=== PATIENT | male | born 1940 | race Caucasian/White ===

== ENCOUNTER 2016-09-05 12:42 | Inpatient (IN) | payer MEDICARE, BC ==
[~2016-09-05] VITALS: Ht 175.3 cm; Wt 85.2 kg
--- NOTE | ~2016-09-05 | CON ---
PATIENT'S NAME: MIGUEL VILLAFUERTE [facility] AGE: 76 Y [address] ROOM: [address] [place], [place] [address] LOCATION: GIRP ADMIT DATE: 09/05/2016 Consultation DISCHARGE DATE: 09/05/2016 FAMILY PHYSICIAN: Hawk Torrez MD ATTENDING PHYSICIAN: Billy Avitia DATE OF CONSULTATION: 09/05/2016 Team members reporting include Dr. Avitia; Reyna Hunt, hospice social worker; Isabella Bacon, RN; Kita Meadows, PT; Sandra Payne, PT; Nora Horta, OT; Tamie Yung, Speech Therapy; Jana Tate, therapeutic rec; and Sister Aide Lay, Pastoral Care. CURRENT STATUS: Patricia Adames is a 76-year-old man, admitted to our inpatient rehab unit from [facility] on September 05, 2016, for inpatient rehab. The patient's heart rate was in the 140s and went into atrial fibrillation shortly after admission. The patient then was transferred to acute care. The patient did have a stroke with right hemiplegia. He also has a history of long-term anticoagulation on Eliquis with atrial fibrillation, coronary artery disease, past history of a PTCA, hypertension, chronic systolic congestive heart failure, CPAP for chronic obstructive pulmonary disease, reflux esophagitis, benign prostatic hypertrophy, gout, history of TIAs, and dyslipidemia. The patient is having difficulty with problem solving. He can get out of bed at contact guard assistance. He is able to ambulate 150 feet with hand-held assistance, contact guard assistance to minimal assistance. He does list to his right. The patient does have a flailing right hand that they feel is involuntary. He does have overall aphasia and apraxia. The patient is able to communicate through automatic expressions or gestures. He is to have a mechanical soft diet with extra gravy. He needs one-to-one supervision. DISCHARGE PLAN: The patient is receiving 3 hours of PT, OT, and Speech, Sunday through Sunday. He is being transferred to acute care for further medical assistance. We will evaluate patient and see if the patient qualifies to come back to rehab when ready. REYNA HUNT FOR BILLY AVITIA MD TD/modl PATIENT'S NAME: MIGUEL VILLAFUERTE [facility] AGE: 76 Y [address] ROOM: [place] [address] LOCATION: [facility] ADMIT DATE: 09/05/2016 Consultation DISCHARGE DATE: 09/05/2016 FAMILY PHYSICIAN: Hawk Torrez MD ATTENDING PHYSICIAN: Billy Avitia /[id number] d: t: 09/08/166, CONSULTATION REPORT
--- NOTE | ~2016-09-05 | HP ---
PATIENT'S NAME: [facility] AGE: 76 Y [address] ROOM: [place] [address] LOCATION: [facility] ADMIT DATE: 09/05/2016 History & Physical DISCHARGE DATE: 09/05/2016 FAMILY PHYSICIAN: Hawk Torrez MD ATTENDING PHYSICIAN: Billy Barboza CORRECTED PATIENT ACCOUNT INFORMATION PER OPERATIONS 09/07/16 AO DATE OF SERVICE: This 76-year-old gentleman was admitted from [facility] for continuous medical treatment and intensive rehabilitation with: 1. Unstable gait. 2. Dependent in activities of daily self-care with right hemiplegia and slurred speech initially secondary to ischemic stroke. He is having difficulty with speech. Also, he is having difficulty with comprehension. Also agitated and with athetotic movement of the right upper extremity, and to a much lesser extent, right lower extremity. He was admitted and evaluated initially, and Speech did evaluate his swallowing, and he was put on mechanical soft with supervision one-on-one for swallowing. Dr. Hartley from [place] did contact me and did give me a good synapse about his progress and where he is now. We thought, according to his description, he is a good candidate for intensive rehabilitation. Upon admission, he was evaluated, and EKG showed atrial fibrillation with rapid ventricular response, and it was decided by [employer] to transfer him to acute site for management per healthcare customer service and [employer]. He was, at the time of admission, with the following vitals: Blood pressure 138/77, temperature 96.8, pulse 64 and irregular, respiration rate 20. He is 5 feet 9 inches tall and weighs 85.2 kg. ALLERGIES: NONE REPORTED. HE IS, AT THE PRESENT TIME, FAIRLY AGITATED AND DOES NOT REALLY FOLLOW INSTRUCTIONS VERY WELL. HE IS EASILY IMPULSIVE AND CAN HURT HIMSELF. HE CAN MOVE ALL 4; HOWEVER, RIGHT UPPER EXTREMITY, I MENTIONED, IS WITH ATHETOTIC INVOLUNTARY MOVEMENTS. HIS VOICE IS CLEAR, BUT HE DOES NOT MAKE MUCH SENSE ABOUT WHAT HE WANTS TO SAY, AND I DO NOT THINK HE IS UNDERSTANDING WELL. PATIENT'S NAME: [facility] AGE: 76 Y [address] ROOM: [place] [address] LOCATION: [facility] ADMIT DATE: 09/05/2016 History & Physical DISCHARGE DATE: 09/05/2016 FAMILY PHYSICIAN: Hawk Torrez MD ATTENDING PHYSICIAN: Billy Barboza PAST HISTORY OF SIGNIFICANCE: 1. Long-term anticoagulation on Eliquis with paroxysmal atrial fibrillation. 2. History of coronary artery disease. 3. Past history of PTCA. 4. Hypertension. 5. Chronic systolic congestive heart failure. 6. On CPAP secondary to chronic obstructive respiratory syndrome. 7. Reflux esophagitis with hiatal hernia. 8. Recently reported per his , he lost about 30 to 35 pounds. 9. Benign prostatic hypertrophy. 10. Gout. 11. History of TIA. Reportedly, he did well afterwards. 12. Dyslipidemia. 13. History of bilateral total knee replacements. 14. Status post cardiac catheterization with 3 stent placements on document. MEDICATIONS: He was on the following medications: 1. Calcium 600 mg p.o. twice daily. 2. Eliquis 5 mg p.o. twice daily. 3. Osteo Bi-Flex 2 tablets p.o. daily. 4. Vasotec 5 mg p.o. daily. 5. Potassium chloride extended release 20 mEq. 6. Sotalol 120 mg daily. 7. Flomax 0.4 mg p.o. daily. 8. Omeprazole 40 mg p.o. daily. 9. Allopurinol 300 mg daily. 10. Myrbetriq extended release 50 mg p.o. at night at bedtime. 11. Sotalol 80 mg p.o. at bedtime. He is, at the present time, able to move all 4; however, as I mentioned, he is weaker on the right side. Right upper extremity is demonstrating athetotic movement; however, tells me that those are much better. He is not well oriented. He is agitated easily and at risk of falling. After discussion with the [employer], it was decided that he should be transferred to acute site to be monitored for his rapid ventricular response to atrial fibrillation. I will watch him. Note, this is also a discharge summary because he was admitted for a few hours, maybe 3 hours, here on the rehab unit and was transferred to acute site. PATIENT'S NAME: MIGUEL [facility] AGE: 76 Y [address] ROOM: [place] [address] LOCATION: [facility] ADMIT DATE: 09/05/2016 History & Physical DISCHARGE DATE: 09/05/2016 FAMILY PHYSICIAN: Hawk Torrez MD ATTENDING PHYSICIAN: Billy Barboza MD WMS/modl /[id number] CORRECTED PATIENT ACCOUNT INFORMATION PER OPERATIONS 09/07/16 AO D: 309 T: 637 HISTORY & PHYSICAL
--- NOTE | 2016-09-05 15:04 | NUR ---
Patient admitted at 1200. Transferred from [facility]. CVA. found patient in recliner at home. Appeared to be falling out of chair. Patient was taken to [facility]. Due to the fact they were unsure how long he was there no TPA was given. Right sided weakness. 2A walker. Aphasia. Impusive. Alarms at all times. Mechanical soft diet. 1:1 feeder. Thin liquids with supervision only. Meds whole with applesauce. Skin tear to right elbow and finger on right hand. Weaping edema present. Arm wrapped with kerlix. Skin tear to right lower leg. Gauze on. Patient becomes very agitated and violent at times. Ativan IV for agitation. Last BM . Vitals to be taken every 6 hours.
[2016-09-05] MEDS ORDERED: CALCIUM CARBON600 MG PO (16:24)
[2016-09-05] MEDS ORDERED: ELIQUIS5 MG PO (16:24)
[2016-09-05] MEDS ORDERED: OSTEO BI-FLEX1 EAC1 PO (16:26)
[2016-09-05] MEDS ORDERED: VASOTEC5 MG PO (16:26)
--- NOTE | 2016-09-05 16:27 | NUR ---
Patient was very agitated upon arrival. After about an hour of being here patient got up and tried pushing the nurses out the door. Swinging at nurses at times. Patient's right arm is always fidgiting around. Patient hits arm on bed and has a couple of skin tears due to the flailing of arm. Kerlix to right arm. Tele ordered. Patient ordered to be 1:1. and family present throughout the shift. [place] bed. Alarms at all times.
[2016-09-05] MEDS ORDERED: KCL - MICRO-K10 MEQ PO (16:28)
[2016-09-05] MEDS ORDERED: SOTALOL120 MG PO (16:30)
[2016-09-05] MEDS ORDERED: FLOMAX0.4 MG PO (16:30)
[2016-09-05] MEDS ORDERED: MYRBETRIQ50 MG PO (16:33)
[2016-09-05] MEDS ORDERED: BETAPACE (GENER80 MG PO (16:34)
--- NOTE | 2016-09-08 11:54 | NUR ---
[facility] Case Management Prefunctioning and Psycho-Social Initial Assessment for 09/05/16, Case Conference Note for 09/05/16 and Discharge Note for 09/05/16 D: Initial [employer], Case Conference note and Discharge Note. I: Input from: patient, family, Dr. Booker, Dr. Barboza, Ryena Hunt [facility] R: Reason for admission: CVA with right sided weakness Admission Date to [facility]: 09/05/16 Admission Date to Hospital: 09/02/16 Prior level of functioning: patient was independent with adl's and household prior to stroke. Prior living situation: home with . Financial resources/expectations: patient has Medicare and BC/BS. Resources used: none Resources available: HHC, outpatient therapy, SNF, GROUP HOME, [facility], DME. Family support available: , kids Understands nature of health condition: no Recognizes impact of health condition on lifestyle: no Vocational/Educational: retired Behavior/Emotional needs: cues for safety. Monitor for signs and symptoms of depression and anxiety Legal concerns: none. Discharge goal: home with support of family. Assessment: Zacarias is a 76 year old man from [place], [place] admitted after a stroke from [facility] [place]. He has good family support. Patient unfortunately needed to transfer to acute care shortly after admission due to increased agitation and atrial fibrillation. Will follow and take back to [facility] when appropriate. Orientation to the program and CM services completed with Zacarias. Initial plan of care and estimated length of stay discussed, disclosure statement reviewed including patient assessment rights. P: Target date and individual goals established. Please see POC for details. For additional information please see Nursing Data Base, PT, OT, TR, ST, Initial assessments to [facility].
== END 2016-09-05 17:50 | disposition hospice, home (50) | DRG 57 ==
LOC: GIRP 12:42
PROVIDERS: ADMIT Physical Medicine & Rehabilitation
DX: I69.351 Hemiplegia and hemiparesis following cerebral infarction affecting right dominant side (principal); I50.22 Chronic systolic (congestive) heart failure; Z99.81 Dependence on supplemental oxygen; F19.20 Other psychoactive substance dependence, uncomplicated; I48.0 Paroxysmal atrial fibrillation; I69.328 Other speech and language deficits following cerebral infarction; G47.33 Obstructive sleep apnea (adult) (pediatric); I69.320 Aphasia following cerebral infarction; J44.9 Chronic obstructive pulmonary disease, unspecified; K21.0 Gastro-esophageal reflux disease with esophagitis; M10.9 Gout, unspecified; K11.7 Disturbances of salivary secretion; K44.9 Diaphragmatic hernia without obstruction or gangrene; N18.9 Chronic kidney disease, unspecified; I12.9 Hypertensive chronic kidney disease with stage 1 through stage 4 chronic kidney disease, or unspecified chronic kidney disease; R26.81 Unsteadiness on feet; Z74.1 Need for assistance with personal care; Z96.653 Presence of artificial knee joint, bilateral
CPT/HCPCS: C9113; J2060

== ENCOUNTER 2016-09-05 17:00 | Inpatient (IN) | payer MEDICARE, BC ==
[~2016-09-05] VITALS: Ht 175.3 cm; Wt 82.6 kg
--- NOTE | ~2016-09-05 | CON ---
PATIENT'S NAME: NOY MIGUEL Nemesio [facility] AGE: 76 Y [address] ROOM: [address] [address] LOCATION: GPCU ADMIT DATE: 09/05/2016 Consultation DISCHARGE DATE: FAMILY PHYSICIAN: Hawk Torrez MD ATTENDING PHYSICIAN: Luis Alberto CARR DATE OF CONSULTATION: 09/13/2016 REFERRING PHYSICIAN: Billy Allen MD INITIAL PSYCHIATRIC EVALUATION/CONSULTATION DATA: This is a 76-year-old male, currently admitted to [facility]. CONSULT REQUESTING PHYSICIAN: Fatmata De Santiago MD. DIAGNOSIS: At time of the evaluation, delirium, mixed, acute due to multiple medical conditions. RECOMMENDATIONS: 1. Even though the Seroquel is an appropriate medication in this case, probably Zyprexa maybe a bit better considering the multiple heart problems that the patient has been having, so if you do not mind, I am going to discontinue the Seroquel and put him back on Zyprexa. Nevertheless, we are going to go up on the dose, so he is going to go on Zyprexa 15 mg of the Zydis type every h.s. plus Zyprexa 5 mg of the Zydis type every 6 hours p.r.n. agitation, which is a maximum of 25 mg of Zyprexa overall in 24 hours. 2. Whenever possible, please try again to get the patient back on BiPAP or a CPAP considering the hypoxemia that the patient is experiencing because the longer that patient is hypoxemic, the more difficult going to be to get out of the delirium. HISTORY: This gentleman ended up in [facility] recently as a transfer from [place] where he had a stroke. He has multiple medical problems, and he was transferred initially to our rehab unit where he was confused there, so a psychiatric consultation was requested as soon as he actually ended up in our progressive care unit because he is ill. I reviewed the electronic records, the paper records, talked to the nurse for vital signs and collateral information. I talked to the patient on a [id number] in the company of his , and also I talked to Dr. De Santiago. The patient is a very poor historian, PATIENT'S NAME: NOY [facility] AGE: 76 Y [address] ROOM: [id number] [place], [place] [address] LOCATION: GPCU ADMIT DATE: 09/05/2016 Consultation DISCHARGE DATE: FAMILY PHYSICIAN: Hawk Torrez MD ATTENDING PHYSICIAN: BRUNOLuis Alberto will very rapidly fall asleep even though we tried to keep him away, so not very cooperative with the interview. The patient also has been confused at times and even aggressive to one of the nurses at one point with no reason. As I am seeing right now, the patient seems to be sleeping during the daytime, and he had a restless night. The patient also has had issues with not being able to keep conversation, very distractible, and with everything together seems to be a classic case of delirium, that was the diagnosis given by the order department supervisor just to begin with, and they were already trying to deal with delirium with a low dose of Zyprexa and Seroquel when they called me. The patient does not have a previous history of being delirious but again multiple medical problems. SUBSTANCE USE HISTORY: Noncontributory, not a smoker, a drinker, or a drug user. PAST PSYCHIATRIC HISTORY: Never been in a psychiatric facility. Never suicidal. MEDICAL HISTORY: Per history and physical. Very relevant for the case. The patient is known to have obstructive sleep apnea, but he has not been compliant with his CPAP. PERSONAL HISTORY: He is from [place] and right now with his here in [facility]. HISTORY OF ABUSE: Noncontributory. FAMILY HISTORY: Noncontributory. MENTAL STATUS EXAMINATION: This is a gentleman, not cooperative, sedated, sleeping. His speech is nonproductive and from what I understand after the stroke, is not being productive for medical reason of course. Mood is labile. Affect is labile. Thought content is relevant. The patient is not recently endorsing suicidal or homicidal ideation, not recently endorsing auditory or visual hallucination, not recently endorsing delusional thoughts. Thought process congruent, not coherent, but again there are issues with the production obviously because of the aphasia . Memory could not be tested. Level of alertness seems to be fluctuating, and we do not know if he is oriented. STRENGTHS: Access to service. PATIENT'S NAME: MIGUEL VILLAFUERTE [facility] AGE: 76 Y [address] ROOM: [address] [place], [place] [address] LOCATION: [facility] ADMIT DATE: 09/05/2016 Consultation DISCHARGE DATE: FAMILY PHYSICIAN: Hawk Torrez MD ATTENDING PHYSICIAN: Luis Alberto CARR BARRIERS: Multiple at present time. ARTHUR CARRILLO MD HG/modl /[id number] d: 09/13/16 2328 t: 09/15/16 0750, CONSULTATION REPORT
--- NOTE | ~2016-09-05 | DS ---
PATIENT'S NAME: MIGUEL VILLAFUERTE [facility] AGE: 76 Y [address] ROOM: [address] [place], [place] [address] LOCATION: GPCU ADMIT DATE: 09/05/2016 Discharge Summary DISCHARGE DATE: 09/20/2016 FAMILY PHYSICIAN: Hawk Torrez MD ATTENDING PHYSICIAN: Luis Alberto ABRAMS DISCHARGE DIAGNOSES: 1. 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 2. Atrial fibrillation with rapid ventricular response. 3. Acute encephalopathy, secondary to cerebrovascular accident. 4. Essential hypertension. 5. 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 6. Long-term anticoagulation with Coumadin. 7. Obstructive sleep apnea, uses CPAP. 8. Hypokalemia. 9. Dyslipidemia. 10. History of coronary artery disease, status post PTCA. 11. Monoarticular arthritis, right ankle. 12. Gout. For details of admission, please see the history and physical dictated by Coy Morin for Dr. Abrams and consultation provided by Dr. Varela. In short, the patient was transferred to our rehab facility, status post a stroke. On arrival, he was noted to be encephalopathic and having atrial fibrillation, so therefore was admitted on PCU. LABORATORY DATA: On admission, sodium 145, remained stable, it was 143 at discharge. Potassium on admission was 3.5, at discharge 4. BUN on admission was 11, discharge 22. Creatinine on admission was 1, discharge 1.1. Alkaline phosphatase on admission was 50, AST is 81, ALT 35, cholesterol 123, HDL 45, LDL 61. Cardiac enzymes were negative. Dig level was 1.25 on September 10. White blood cell count on admission was 6.3 with hemoglobin of 12.3, hematocrit 36.3, MCV 100, and platelet count 205. Hemoglobin remained stable at discharge, it was 11. Procalcitonin on admission was less than 0.05. Urinalysis on admission did not show any evidence of infection. Culture data: Material from the PEG site did grow Staph aureus. Cardiovascular data: Echocardiogram showed the patient had an EF of 40%-45%. He had grade 1 diastolic. HOSPITAL COURSE: The patient was admitted to the floor on PCU. At that time, it was felt because of his encephalopathy that he needed to be a one-to-one. He was initiated on a statin drug and a fasting lipid was obtained. PATIENT'S NAME: MIGUEL VILLAFUERTE [facility] AGE: 76 Y [address] ROOM: [address] [place], [place] [address] LOCATION: GPCU ADMIT DATE: 09/05/2016 Discharge Summary DISCHARGE DATE: 09/20/2016 FAMILY PHYSICIAN: Hawk Torrez MD ATTENDING PHYSICIAN: Luis Alberto ABRAMS did see him from a neurology standpoint. Because of the atrial fibrillation, Dr. Traylor did see him. He was initially given Haldol for his encephalopathy. This was changed to Seroquel. He did require IV Cardizem for rate control. He was initially placed on sotalol for the atrial fibrillation. Adjustments were made in the Seroquel in an attempt to try and help bring the confusion under control. An MRI was ordered. But, however, it could not be done because of his agitated state and inability to lie still. There was some concern about a low-grade fever. He was empirically started on Rocephin and cultures obtained. He did receive IV Lopressor, IV Trandate, and IV hydralazine for blood pressure control. The patient did flip back into atrial fibrillation. He was put on the Cardizem drip. Again, at that time, the patient was taken off sotalol and loaded with amiodarone drip. There were multiple adjustments in his medications to try and keep this under control. Neurology did not feel that he was safe to anticoagulate until September 19. He did develop some redness in his ankle, and there was concern that this was gout. He was initially given some colchicine. An NG was placed because he was not able to swallow. Because of the difficulty controlling his rate, he was loaded with IV digoxin. He did continue to have significant issues with episodes of atrial fibrillation and encephalopathy. Decision was made to present with a PEG. Dr. Dasilva did see him and a PEG tube was placed by Dr. Dasilva on September 12 without any issue. Because of the ongoing encephalopathy, psychiatry did see him again. They changed him putting back on Zyprexa at 15. He was able to start his tube feeds. We did use his G-tube for medications. Adjustments were made in the metoprolol dose to try and keep his heart rate controlled. He did continue to go in and out of atrial fibrillation. On the , it was discussed with Neurology. At that time, they did give the okay to start anticoagulation. He was started on Coumadin. His right ankle did become erythematous again. He responded nicely to Solu-Medrol and was given 2 days of IV Solu-Medrol with resolution of his symptoms. He did start to have some improvement in his delirium, and he is able to work with therapy a little bit more. His speech was improved. On the , it was noted he had some drainage around his PEG tube. This was cultured. It did grow Staph. He was empirically started on doxycycline. On the morning of discharge, he did have another episode where he went into atrial fibrillation with a fast rate for a brief period. The amiodarone dose was adjusted. Cardiology did see him and still feel that he was safe for transfer to [facility]. The patient did have a Gordillo catheter in place. It was removed. He did require straight cath x1, but was voiding the morning of discharge without any difficulty. The benefits of proceeding to [facility] were discussed with the patient's at length. She and her children did agree with this transfer. DISCHARGE INSTRUCTIONS: To follow up Dr. Traylor on arrival for his rate and rhythm. He is to have Jevity at 1.5 at 50 mL/h, 150 mL flushes every 4 hours. CPAP at night. He is to have daily prothrombin times and INRs. He will have PATIENT'S NAME: MIGUEL VILLAFUERTE [facility] AGE: 76 Y [address] ROOM: [address] [address] LOCATION: GPCU ADMIT DATE: 09/05/2016 Discharge Summary DISCHARGE DATE: 09/20/2016 FAMILY PHYSICIAN: Hawk Torrez MD ATTENDING PHYSICIAN: Luis Alberto ABRAMS drain dressing change around his PEG. MEDICATIONS: 1. Prevacid slurry 30 mg daily. 2. Amiodarone 400 mg twice daily. 3. Lipitor 80 mg daily. 4. Bacitracin around the PEG site twice daily. 5. Doxycycline 100 mg twice daily via tube through September 26. 6. Enalapril 5 mg daily. 7. Lopressor 25 mg twice daily. 8. Zyprexa 15 mg at bedtime. 9. Potassium 40 mEq daily. 10. Flomax 0.4 mg daily. 11. Dulcolax 10 mg per rectum as needed for constipation. 12. Milk of magnesia 30 mL daily as needed for constipation. 13. Zyprexa 5 mg every 6 hours as needed for agitation, max of 25 mg per day. 14. Coumadin 2.5 mg Sunday, Sunday, and Sunday; and 5 mg Sunday, Sunday, , and Sunday. 15. DuoNeb inhaled every 4 hours as needed for cough or shortness of breath. CHERELLE JOHN MD LAW/modl /[id number] d: 09/20/162 t: 09/21/16 1641, DISCHARGE SUMMARY
--- NOTE | ~2016-09-05 | CON ---
PATIENT'S NAME: NOY [facility] AGE: 76 Y [address] ROOM: [place] [address] LOCATION: GPCU ADMIT DATE: 09/05/2016 Consultation DISCHARGE DATE: FAMILY PHYSICIAN: Hawk Torrez MD ATTENDING PHYSICIAN: Luis Alberto CARR REFERRING PHYSICIAN: Billy Allen MD REASON FOR CONSULTATION: Status post stroke with inability to swallow. HISTORY OF PRESENT ILLNESS: The patient is a 76-year-old male who had a left middle cerebral artery stroke. He was initially treated in [place]. He was sent here more for rehab purposes. He has had atrial fibrillation. He has been unable to swallow. He has had difficulty with communication with some confusion. He is being followed by Speech Therapy and is having difficulty even swallowing his own secretions. He has been unable to eat. He has not tolerated Dobhoff due to agitation. Because of this, I have been asked to place a PEG. The patient has had no previous abdominal surgeries. PAST MEDICAL HISTORY: Coronary artery disease, hypertension, hyperlipidemia, history of myocardial infarction, TIAs, sleep apnea, gout, BPH, and history of cardiomyopathy. PAST SURGICAL HISTORY: Bilateral cataract, knee scope, EGD, and previous heart stents. ALLERGIES: NO KNOWN MEDICAL ALLERGIES. HOME MEDICATIONS: 1. Sotalol. 2. Osteo Bi-Flex. 3. Potassium. 4. Eliquis. 5. Vasotec. 6. Calcium. 7. Flomax. 8. Myrbetriq. 9. Omeprazole. FAMILY HISTORY: Father with coronary artery disease and prostate cancer. Mother had coronary artery disease as well as breast cancer. SOCIAL HISTORY: PATIENT'S NAME: NOY [facility] AGE: 76 Y [address] ROOM: [place] [id number] LOCATION: GPCU ADMIT DATE: 09/05/2016 Consultation DISCHARGE DATE: FAMILY PHYSICIAN: Hawk Torrez MD ATTENDING PHYSICIAN: Luis Alberto CARR He does not smoke. Drinks 1-2 drinks each night. REVIEW OF SYSTEMS: Unobtainable. PHYSICAL EXAMINATION: GENERAL: He is a somewhat anxious 76-year-old male who has difficulties with communication. HEENT: Head is normocephalic. He has oral secretions down the right side of his mouth. HEART: Irregularly irregular. LUNGS: Clear to auscultation bilaterally. ABDOMEN: Soft. It is nontender to palpation. EXTREMITIES: Warm. No edema. ASSESSMENT: Status post cerebrovascular accident with inability to swallow, a need for long-term enteral nutrition. PLAN: Discussed the findings with the patient's . He has not been able to have oral nutrition as he is having difficulty even controlling his own secretions. Because of this, we have discussed PEG tube placement with the patient's . The risks, benefits, and alternatives, which include, but are not limited to, bleeding, infection, tube malposition, erosions, injury to other viscera, as well as inability to place the tube. She understands the risks and would like to proceed. We will plan on scheduling this in the near future. MD SAMMY HAMMER/macarena /[id number] d: 09/11/16 2134 t: 09/19/16 1811, CONSULTATION REPORT
--- NOTE | ~2016-09-05 | HP ---
PATIENT'S NAME: MIGUEL VILLAFUERTE [facility] AGE: 76 Y [address] ROOM: G6327 [place], [place] [address] LOCATION: GPCU ADMIT DATE: 09/05/2016 History & Physical DISCHARGE DATE: FAMILY PHYSICIAN: Hawk Torrez MD ATTENDING PHYSICIAN: Luis Alberto CARR Corrected patient account information per operations 09/07/16 AO DATE OF SERVICE: 09/05/2016 CHIEF COMPLAINT: Atrial fibrillation with rapid ventricular response. HISTORY OF PRESENT ILLNESS: This is a 76-year-old male, who was hospitalized in [facility] and transferred to [facility]patient [facility]hab Unit today when the hospitalists were consulted for medical management. The patient was found to be in atrial fibrillation with rapid ventricular rate in the 140 beats per minute. Blood pressure was stable. Cardiology consultation was obtained and felt that the patient should be transitioned to PCU for correction. Collateral information was gathered from the spouse at bedside, nurse, and chart review as the patient is an unreliable historian secondary to his recent stroke. A 76-year-old male with a history of paroxysmal atrial fibrillation, on long- term anticoagulation with Eliquis, history of coronary artery disease with previous stents, hypertension, chronic systolic congestive heart failure, obstructive sleep apnea, noncompliant with CPAP, reflux, hiatal hernia, and recent 35-pound weight loss since last fall 2015. There is some question of chronic kidney disease, although his most recent creatinine is normal and BPH. On Sunday, he was resting in his recliner when the found him slumped over, unresponsive, and drooling from the right side of his mouth. He was taken by EMS team to [facility] where a CT scan was performed, and it was positive for ischemic stroke involving the left frontal, temporal, and parietal lobes. He was not a tPA candidate secondary to use of Eliquis according to the neurologist consultation by phone. He was given aspirin and IV fluids by documentation for permissive hypertension. He has not been cooperative with cares. He has significant expressive aphasia, right-sided involuntary movements, and right-sided facial droop. He has been getting IV morphine and IV Ativan for behavioral controls and was reported to have right upper extremity restraint for thrashing of his right upper extremity. He has not been taking anything orally, most notably his cardiac medications. Here, he is found to be in atrial fib with a rapid ventricular rate, and an EKG shows 140 beats per minute. He is normotensive and relatively asymptomatic but hard to determine given his aphasia. Speech therapist was just in and cleared him for medications with applesauce. Cardiology and neurologic PATIENT'S NAME: MIGUEL VILLAFUERTE [facility] AGE: 76 Y [address] ROOM: [place] [address] [facility] AD[facility] DATE: 09/05/2016 History & Physical DISCHARGE DATE: FAMILY PHYSICIAN: Hawk Torrez MD ATTENDING PHYSICIAN: Luis Alberto CARR consultation has been ordered by the Physiatry Team. A CT of the head without contrast has been also ordered, and IV Ativan has been ordered for behaviors. REVIEW OF SYSTEMS: Difficult given the patient's unreliable history and confusion. PAST MEDICAL HISTORY: 1. Paroxysmal atrial fibrillation. 2. Long-term anticoagulation with Eliquis. 3. History of coronary artery disease with a past history of PTCA. 4. Hypertension. 5. Chronic systolic congestive heart failure. 6. [place], noncompliant with CPAP. 7. Acid reflux. 8. Hiatal hernia. 9. Recent 35-pound weight loss. 10. Questionable CKD 3. 11. BPH. 12. History of gout. 13. History of TIA. 14. Hyperlipidemia. PAST SURGICAL HISTORY: 1. History of bilateral knee replacements. 2. History of heart catheterizations with 3 stents placement documented. 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 He is . He does drink 2 rum and cokes for 5 to 6 days a week. He denies any tobacco use or illicit drug use. ALLERGIES: NO KNOWN MEDICAL ALLERGIES. HOME MEDICATIONS: 1. Calcium 600 mg p.o. twice daily. 2. Eliquis 5 mg p.o. twice daily. 3. Osteo Bi-Flex 2 tablets p.o. daily. 4. Vasotec 5 mg p.o. daily. 5. Potassium chloride extended release 20 mEq TA. 6. Sotalol 120 mg p.o. daily. 7. Flomax 0.4 mg p.o. daily. 8. Omeprazole 40 mg p.o. daily. 9. Allopurinol 300 mg p.o. daily. 10. Myrbetriq extended release 50 mg p.o. every night at bedtime. PATIENT'S NAME: MIGUEL VILLAFUERTE [facility] AGE: 76 Y [address] ROOM: [address] [place], [place] [address] [facility] AD[facility] DATE: 09/05/2016 History & Physical DISCHARGE DATE: FAMILY PHYSICIAN: Hawk Torrez MD ATTENDING PHYSICIAN: Luis Alberto CARR 11. Sotalol 80 mg p.o. every night at bedtime. PHYSICAL EXAMINATION: GENERAL: This is a 76-year-old male, who appears his stated age, who is restless in the bed, having involuntary movements of the right upper extremity and who is not cooperative. He is confused. HEENT: Head is normocephalic, atraumatic. Eyes: Extraocular movements are intact. His pupils are equal, round, and reactive to light and accommodation. Ears: Deferred. Nose: Deferred. Posterior pharynx is visualized. There is no drainage or exudates. Right facial droop is present. NECK: Supple without any lymphadenopathy or thyromegaly. There is no JVD. HEART: Irregular rhythm with fast rate. No murmur auscultated. He has mild bilateral peripheral edema 1+. LUNGS: His lungs are clear throughout all reese without any adventitious sounds. Equal symmetric expansion without labored breathing pattern. ABDOMEN: His abdomen is soft, nontender, and nondistended. Bowel sounds are present. No organomegaly appreciated. EXTREMITIES: Reveal his right hand and right wrist are swollen. Clipman strength is equal 5/5 in upper extremities. No clubbing or cyanosis bilaterally. His lower extremities are also equal. Strength difficult to determine, but it appears his right is a little weaker than his left. SKIN: Posterior right ankle, he has 3 to 4 very small skin tears with weeping serous drainage. NEUROLOGIC: Significant expressive aphasia, questionable right-sided visual deficit with right-sided weakness. IMAGING DATA: Most recent radiologic imaging; on 09/03/2016, radiologic report shows a developing decreased density and apparent edema in the posterior left frontal and temporal lobe and left parietal lobes suggesting subacute infarct. There was no intracranial hemorrhage. LABORATORY DATA: Most recent labs on September 02, 2016, an INR was 1.13. On September 04, 2016, a white blood cell count 6.36, hemoglobin of 12.3, hematocrit of 37.6 and a platelet count of unknown. Chemistry panel showed a glucose 76, BUN 13, creatinine 0.8, GFR greater than 60, calcium 8.1, sodium 142, potassium 3.7, chloride 108, CO2 of 23.7, anion gap 14.0. Echocardiogram and venous Dopplers are reported as pending as of 09/04/2016. An EKG this afternoon shows atrial fibrillation with rapid ventricular response. IMPRESSION: PATIENT'S NAME: MIGUEL VILLAFUERTE [facility] AGE: 76 Y [address] ROOM: [place] [address] LOCATION: GPCU ADMIT DATE: 09/05/2016 History & Physical DISCHARGE DATE: FAMILY PHYSICIAN: Hawk Torrez MD ATTENDING PHYSICIAN: Luis Alberto CARR 1. Atrial fibrillation with rapid ventricular response. Discussed the patient with his primary care pediatric orthodontist. He wishes to transition the patient to progressive care and rate control him with intravenous calcium channel blockers or beta blockers. A CT scan of the patient's head has been ordered for further review. We will have to discuss with Neurology when it would be okay to anticoagulate the patient in light of the patient's atrial fibrillation. 2. Acute ischemic CVA with late effects as expressive aphasia, encephalopathy, right upper extremity involuntary movements, and questionable right-sided neglect. Follow up CT scan. Follow up neuro consultation. Resume aspirin and add statin therapy. Check lipid panel. Follow up echocardiogram and consider getting carotids or further MRI of the brain and MRA of the neck and brain imaging. 3. Coronary artery disease with a history of PTCA. Troponin tests in Ord were negative. We will appropriately treat with aspirin, beta mau, PEDRO inhibitor, and statin therapy once above is resolved. 4. Essential hypertension. Current systolic blood pressure is 130s to 140s. We will continue to closely observe and bring down to goal when okay with Neurology. 5. Chronic systolic congestive heart failure. Appears to be currently euvolemic. We will monitor I and O and return back to appropriate beta blockade and PEDRO inhibitor once blood pressure allows. 6. Benign prostatic hyperplasia. Continue with home Flomax and Myrbetriq. 7. Gastroesophageal reflux disease with hiatal hernia. Continue with current proton pump inhibitor. 8. Recent 35-pound weight loss. Unknown reason. Continue close observation. 9. Deep venous thrombosis prophylaxis. Continue current Lovenox dosing. 10. We will go ahead and admit the patient into progressive care with Cardiology and neurology consultations. Total time review of the history and physical and examination of the patient was 60 minutes. ALEX TORRES APRN, APRN FOR MD ANGIE SALAS/macarena /[id number] Corrected patient account information per operations 09/07/16 AO D: 66 HISTORY & PHYSICAL
--- NOTE | ~2016-09-05 | ECHO ---
Transthoracic Echocardiography Report (TTE) Demographics Patient Name MIGUEL VILLAFUERTE Date of Study 09/06/2016 Patient Number [id number] Visit Number [id number] Date of 1940 Room Number G6327 Accession Number [id number] Gender Male Age 76 year(s) Referring Jose Albertohuey Sahu Central Supply Aide Humphrey Sin Physician Physician Interpreting Marie Turner Portrait Consultant Physician A Supervising Ordering Physician Smith Araya MD/NETOP Nurse Stress Coring Machine Operator Conclusions Summary Technically difficult and technically limited study due to patient combativeness. The estimated left ventricular ejection fraction is 40-45%. Apical akinesis Diastolic assessment reveals Grade I diastolic dysfunction. Right ventricular function appears mildly reduced. Epicardial fat pad noted. Procedure Type of Study TTE procedure:2D Echocardiogram, M-Mode, Doppler , Color Doppler. Procedure Date Date: 09/06/2016 Start: 02:48 PM Study Location: Inpatient Portable Technical Quality: Limited visualization due to combative patient. Indications:CVA. Appropriate Use Criteria: 9 Patient Status: Routine HR: 67 bpm BP: 164/75 mmHg Allergies - No known allergies. M-Mode/2D Measurements LV Diastolic Dimension: 4.95 cm LV Systolic Dimension: 3.76 cm LV Septum Diastolic: 1.03 cm LV PW Diastolic: 0.8 cm AO Root Dimension: 2.8 cm LA Dimension: 3.4 cm RV Diastolic Dimension: 3.35 cm LA volume: 48 ml LVOT: 1.9 cm RV Base: 2.66 cm RV Mid: 2 cm RV Length: 6.3 cm Doppler Measurements MV Peak E-Wave: 0.98 m/s MV Peak A-Wave: 1.18 m/s MV E/A Ratio: 0.83 TR Velocity:1.07 m/s MV P1/2t: 54 msec TR Gradient:4.58 mmHg Estimated RAP:3 mmHg MV Deceleration Time: 215 msec E' Septal Velocity: 0.06 m/s PV Peak Velocity: 1.05 m/s E' Lateral Velocity: 0.06 m/s PV Peak Gradient: 4.41 mmHg Estimated PASP: 7.58 mmHg A' Lateral Velocity: 0.11 m/s Findings Left Ventricle The left ventricle is normal in size . Diastolic assessment reveals Grade I diastolic dysfunction. Apical akinesis. Right Ventricle Right ventricular function appears mildly reduced. Unable to obtain TAPSE or TDI-S' measurements due to patient combativeness. Left Atrium Normal left atrial size. Right Atrium Normal right atrial size. IVC measures 1.38 cm with inspiratory collapse. Mitral Valve Trivial mitral regurgitation by color Doppler. Aortic Valve The aortic valve was not well imaged. The aortic valve is mildly sclerotic. Tricuspid Valve Trivial tricuspid regurgitation by color Doppler. Pulmonic Valve Normal pulmonic valve structure and function. Pericardial Effusion No evidence of pericardial effusion. Epicardial fat pad noted. Miscellaneous Visualized portions of the aortic root and ascending aorta appear normal in size. Pleural Effusion No evidence of pleural effusion. Contractility Score LV regional wall motion:(0-Non visualized 1-Normal 2-Hypokinesis 3-Akinesis 4-Dyskinesis 5-Aneurysm) Signature dtt: Jomar Salazar dtd: 09/06/16 1448 Physician Self Edit
--- NOTE | ~2016-09-05 | OR ---
PATIENT'S NAME: NOY FRIENDSHIP Nemesio [facility] AGE: 76 Y [address] ROOM: [place] [address] LOCATION: GPCU ADMIT DATE: 09/05/2016 OR/Procedure Report DISCHARGE DATE: FAMILY PHYSICIAN: Hawk Torrez MD ATTENDING PHYSICIAN: Luis Alberto CARR SURGEON: Reinaldo Dasilva MD SKEIN MERCERIZING MACHINE OPERATOR: DATE OF PROCEDURE: 09/12/2016 PREOPERATIVE DIAGNOSIS: Dysphagia status post cerebrovascular accident. POSTOPERATIVE DIAGNOSIS: Dysphagia status post cerebrovascular accident. PROCEDURE: Percutaneous endoscopic gastrostomy tube placement. FINDINGS: The catheter appeared to be in good position at 3 cm to the skin. ESTIMATED BLOOD LOSS: Less than 20 mL. COMPLICATIONS: None. INDICATIONS: The patient is a 76-year-old male who had a cerebrovascular accident. He was unable to swallow and obtain adequate oral intake. We discussed PEG placement with the patient's spouse, the risks, benefits, and alternatives, and she elected to proceed. DESCRIPTION OF PROCEDURE: The patient was taken into the endoscopy suite. He was supine. Bite block was positioned. Flexible endoscope was inserted in the esophageal lumen and was advanced through the esophagus down to the GE junction. No significant esophagitis was present. There was bile within the gastric lumen. This was suctioned. We advanced scope into the first part of the duodenum. No duodenal abnormalities were seen. We withdrew back into the antrum and maximally insufflated the stomach. A light reflex was able to be seen on the anterior abdominal wall. This was selected for our insertion site. Local anesthetic was then infiltrated. A stab incision was created. The introducer sheath and needle were then inserted into the gastric lumen under endoscopic visualization. The wire was then placed. The snare was placed through the flexible endoscope. The wire was snared and brought out through the mouth. The PEG tube was then fed over the wire. The wire, PEG tube, and flexible endoscope were all pulled back into the gastric lumen. The snare was released. The wire was removed. The rubber bumper was placed on the PEG tube, it appeared to be in good position at 3 cm to the skin and appeared hemostatic. The scope was then withdrawn. The PEG tube was secured in place to gravity. The patient tolerated the procedure well. PATIENT'S NAME: NOY [facility] AGE: 76 Y [address] ROOM: [address] [address] [facility] ADMIT DATE: 09/05/2016 OR/Procedure Report DISCHARGE DATE: FAMILY PHYSICIAN: Hawk Torrez MD ATTENDING PHYSICIAN: Luis Alberto CARR REINALDO J MD SAMMY DASILVA/modl /[id number] d: 09/12/16905 t: 09/19/16 1813, OPERATIVE SUMMARY
--- NOTE | ~2016-09-05 | CON ---
PATIENT'S NAME: MIGUEL VILLAFUERTE [facility] AGE: 76 Y [address] ROOM: [address] [place], [place] [address] LOCATION: GPCU ADMIT DATE: 09/05/2016 Consultation DISCHARGE DATE: FAMILY PHYSICIAN: Hawk Torrez MD ATTENDING PHYSICIAN: Luis Alberto CARR REFERRING PHYSICIAN: Jose Alberto Sahu MD REASON FOR CONSULT: Atrial fibrillation with rapid ventricular response. HISTORY OF PRESENT ILLNESS: This is a 76-year-old gentleman, well known to Dr. Traylor with a history of paroxysmal atrial fibrillation, coronary artery disease with myocardial infarction, obstructive sleep apnea. He was last seen by Dr. Traylor on 08/30/2016 with recent complaints of dizziness. He had worn ZIO monitor, which had shown normal sinus rhythm with numerous runs of paroxysmal atrial fibrillation. At that time, his sotalol was increased to 120 mg in the morning and 80 mg in the h.s. He was also continued on Eliquis therapy. Unfortunately, the following Sunday, he has suffered a CVA with right-sided weakness and aphasia. He was transferred to [place] on day of admission to start inpatient rehab, and at that time, he was found to be in atrial fibrillation with rapid ventricular response. He then became very combative and confused and therefore was transferred to the acute care. While here, a second CT was ordered, but he was so combative, they were unable to get it. He had been given Haldol, Zyprexa, and Ativan. He remains confused, combative, and restless. He did convert though into a regular sinus rhythm around midnight. Currently, he is unable to give any information. Most of his information has been gleaned from old records. PAST MEDICAL HISTORY: 1. Coronary artery disease with myocardial infarction, post PCI, stenting of the LAD and RCA in 2000, 2009, and 2011. 2. Essential hypertension. 3. Hyperlipidemia. 4. History of anterior wall myocardial infarction. 5. TIA. 6. Paroxysmal atrial fibrillation, post cardioversion, 11/04/2012. 7. Obstructive sleep apnea, inconsistent use of CPAP. 8. Long-term anticoagulation, on omeprazole. 9. Gastroesophageal reflux disease. 10. Gout. 11. BPH. 12. History of cardiomyopathy with EF of 35% with a normalized EF of 58%. 13. History of thrombocytopenia. 14. History of depression. 15. History of chronic kidney disease. PATIENT'S NAME: MIGUEL VILLAFUERTE [facility] AGE: 76 Y [address] ROOM: [address] [place], [place] [address] [facility]: 09/05/2016 Consultation DISCHARGE DATE: FAMILY PHYSICIAN: Hawk Torrez MD ATTENDING PHYSICIAN: Luis Alberto CARR PAST SURGICAL HISTORY: He has had bilateral cataract surgery; a knee scope; an EGD done on 03/01/2016, was normal; C with PTCA and stent, mid RCA, 02/26/2012; left heart catheterization, 07/16/2011, PTCA and stenting of the [place] RCA; 08/13/2009, PTCA and stent, RCA; 02/09/2001, PTCA and stent, LAD. ALLERGIES: THERE ARE NO KNOWN MEDICAL ALLERGIES, BUT HE HAS MYALGIAS ON LIPITOR. CURRENT HOME MEDICATIONS: 1. Sotalol 120 mg in the morning and 80 mg in the h.s. as of 08/30/2016. 2. Osteo Bi-Flex 2 capsules daily. 3. Potassium 20 mEq daily. 4. Eliquis 5 mg b.i.d. 5. Vasotec 5 mg daily. 6. Calcium 600 mg b.i.d. 7. Flomax 0.4 mg every h.s. 8. Myrbetriq 50 mg every day. 9. Omeprazole 40 mg every a.m. FAMILY HISTORY: Father has a three-vessel CABG. He also had prostate cancer. Mother had open- heart surgery in her 80s. She also had breast cancer. He has a sister with fibromyalgia. SOCIAL HISTORY: He is a lifelong nonsmoker. He does have a couple of drinks most nights of the week. REVIEW OF SYSTEMS: Unobtainable. PHYSICAL EXAMINATION: GENERAL: This is an elderly male, who has a history of weight loss of about 35 pounds since last fall. He is restless, rolling about in the bed, does not recognize or look when his name is called. HEENT: Currently, he has symmetrical facial expression. His pupils did react briskly. NECK: Soft and supple. There is no lymphadenopathy. No thyromegaly. JVD is flat. Carotids, no carotid bruits are noted. LUNGS: Lung sounds are clear. CV: Regular with a normal S1, S2 with a grade 2/6 systolic ejection murmur heard best at the left lower sternal border. ABDOMEN: Soft. Bowel sounds are present. PATIENT'S NAME: MIGUEL VILLAFUERTE [facility] AGE: 76 Y [address] ROOM: [place] [address] [facility]: 09/05/2016 Consultation DISCHARGE DATE: FAMILY PHYSICIAN: Hakw Torrez MD ATTENDING PHYSICIAN: Luis Alberto CARR EXTREMITIES: Show no peripheral edema today. He does have some abrasion to his left knee. He does not follow commands. LABORATORY DATA: Hemoglobin was 12.3, platelets were 205. BUN 9, creatinine 0.8, sodium was 144, potassium was 3.3. ASSESSMENT: 1. Paroxysmal atrial fibrillation with rapid ventricular response. We will resume the sotalol as described above, that was just increased on the . He is to continue with anticoagulation therapy as his CHADS-VASc score=7. Will plan to resume the Sotalol. 2. Hypokalemia, Will replace the potassium. The assessment and plan, history of present illness and physicial exam are per Dr. Golden Traylor. Further recommendations will be forth comming as information becomes available. REUBEN CONWAY APRN FOR MD BEREKET RUBIO/joel /[id number] d: 09/06/16 2254 t: 09/29/16 0922, CONSULTATION REPORT
--- NOTE | ~2016-09-05 | CON ---
PATIENT'S NAME: MIGUEL GOMEZ [facility] AGE: 76 Y [address] ROOM: [id number] [place], [place] [address] LOCATION: GPCU ADMIT DATE: 09/05/2016 Consultation DISCHARGE DATE: FAMILY PHYSICIAN: PHYSICIAN, UNKNOWN ATTENDING PHYSICIAN: Luis Alberto CARR DATE OF CONSULTATION: 09/05/2016 The patient was seen in neurologic consultation on 05 September 2016 at 9:30 p.m. HISTORY OF PRESENT ILLNESS: Mr. Gomez is a 76-year-old male patient who recently had a stroke involving the left MCA territory we believe. We have no evidence to back this up, as the patient presented to an alternate hospital and was monitored at this hospital for new onset of right-sided weakness and global aphasia. The patient apparently was in the hospital for a few days before he was transferred to our hospital for rehab purposes. According to some limited information at the hospital facility, he was becoming much more confused than rambunctious. By the time he arrived here, he was having difficulty with communication and was certainly beginning to be confused. He also was experiencing a rapid atrial fibrillation which required Cardizem for treatment. He does have known paroxysmal atrial fibrillation and was actually on a new oral anticoagulant that was not mentioned in the chart that I reviewed. Because he presented to the hospital with a new onset of stroke while supposedly religiously taking his medications, he could not be a candidate for tPA due to the oral anticoagulant. The patient did receive IV fluids to maintain his blood pressure. I am seeing the patient in the room this evening and he was moving his extremities appropriately. He did have a noticeable right facial droop and he did have evidence for a bit of neglect of his right side. He was not answering questions appropriately, but did call out his 's name and would follow very basic commands. He was extremely agitated a few hours ago when it was attempted to do both a CAT scan and an MRI. He initially received Ativan and this did not calm him down for the study. He then received Haldol which really did not help with his confusion. I discussed with the nursing staff tonight that we should likely avoid Haldol in this elderly person because we do not know if he has any history of dementia, it has only seemed to make him more agitated. At this point in time, we have no scans to give us some idea of his stroke, but clinically he appears to have at least a left brain syndrome, possibly subcortical base stroke such as in the thalamus or even a frontal parietal stroke since he is globally aphasic. PRIOR MEDICAL HISTORY: Limited at this time, but we do know that he has paroxysmal atrial PATIENT'S NAME: MIGUEL GOMEZ [facility] AGE: 76 Y [address] ROOM: [place] [address] LOCATION: GPCU ADMIT DATE: 09/05/2016 Consultation DISCHARGE DATE: FAMILY PHYSICIAN: PHYSICIAN, UNKNOWN ATTENDING PHYSICIAN: Luis Alberto CARR fibrillation and hypertension. SOCIAL HISTORY: Limited but recorded in the chart as being and a current smoker of a pack of cigarettes a day. We have no further information. ALLERGIES: HE HAS NO KNOWN DRUG ALLERGIES. REVIEW OF SYSTEMS: The patient has presented to our hospital to undergo rehabilitation, but was unable to stay on the rehab floor due to the presence of rapid atrial fibrillation and being extremely rambunctious. He was unable to sit through a CAT scan, nor a brain scan this afternoon. Laboratory results are essentially showing a normal CBC except for a slightly elevated MCV to 102. Urinalysis was negative. His basic metabolic panel was essentially within normal limits with slightly low in potassium than his initial presentation here with a neurologic syndrome of aphasia and a right facial droop. His 10-point review systems is negative. PHYSICAL EXAMINATION: The patient is alerting, but not following commands. He often babbles of a word or two, often cursing. He does not respond to commands, but does at least participate in allowing me to test his limb power and he appears to have near full power in all the limbs. He does not answer any questions and stares blankly. He does seem to have a neglect of his right side presently. The rest of the physical exam is extremely limited. The patient is not participating at this time. IMPRESSION: Acute left hemispheric stroke is likely though we need to get a brain imaging whether that will be a CAT scan or an MRI. Clinically, he presents as a left MCA stroke. Thus, it is not essential that we get the scans immediately. We should treat his agitation with a low dose of antipsychotic and I believe that we can start him on Seroquel 25 mg twice a day. We will just have to be careful about any aspiration, but I do believe it is safe to at least have him take a pill for breakthrough agitation; if need be, Zyprexa 5 mg IV q.6 hours can be given. For poststroke management, the patient appears to have been started on aspirin though this is unlikely to be all that necessary at this point, since this clearly was related to an embolic stroke of atrial fibrillation. For his treatment, he will be given Lipitor 80 mg daily and aspirin if he can take his pills orally. Finally, we should hold off on giving him any oral anticoagulation for least 2 weeks, since I suspect that this is a large stroke and he does present with global aphasia. When we do start oral anticoagulation, I would favor warfarin, this medication can easily PATIENT'S NAME: MIGUEL GOMEZ [facility] AGE: 76 Y [address] ROOM: [place] [address] LOCATION: [facility] ADMIT DATE: 09/05/2016 Consultation DISCHARGE DATE: FAMILY PHYSICIAN: PHYSICIAN, UNKNOWN ATTENDING PHYSICIAN: Luis Alberto CARR be reversed, but we could also tell if the patient is therapeutic on the medication in case he was to ever present to the emergency room again. With new oral anticoagulants, we cannot tell if persons with an acute stroke syndrome are therapeutic or in some type of a therapeutic range with these anticoagulants. We will continue to follow the patient here during this hospital stay. MD CECELIA LAW/joel /[id number] d: 09/06/16 0306 t: 09/07/16 1412, CONSULTATION REPORT
[~2016-09-05 17:00] MED LIST: BETAPACE (GENER80 MG PO; CALCIUM CARBON600 MG PO; ELIQUIS5 MG PO; FLOMAX0.4 MG PO; KCL - MICRO-K10 MEQ PO; MYRBETRIQ50 MG PO; OSTEO BI-FLEX1 EAC1 PO; SOTALOL120 MG PO; VASOTEC5 MG PO
[2016-09-05 19:47] LABS: ANION GAP 12.5 (10.0-19.0); BLOOD UREA NITROGEN 11 mg/dL (6-24); CALCIUM 8.2 mg/dL (8.5-10.5); CHLORIDE 110 mMol/L (96-110); CO2 26 mMol/L (22-32); ESTIMATED GFR (MDRD EQUATION) > 60; POTASSIUM 3.5 mMol/L (3.7-5.1); SODIUM 145 mMol/L (135-145)
[2016-09-06 05:04] LABS: BASOPHIL # 0.1 K/uL (0.0-0.2); BASOPHIL % 0.8 %; EOSINOPHIL # 0.2 K/uL (0.0-0.5); EOSINOPHIL % 3.6 %; HEMATOCRIT 36.3 % (37.0-53.0); HEMOGLOBIN 12.3 g/dL (11.0-16.0); IMMATURE GRANULOCYTE % 0.6 %; LYMPHOCYTE # 1.6 K/uL (0.8-4.0); LYMPHOCYTE % 24.6 %; MCHC 33.9 gm/dL (32.0-36.5); MCV 100.3 fl (83.0-98.0); MONOCYTE # 0.9 K/uL (0.0-1.0); MONOCYTE % 13.7 %; MPV 9.9 fl (9.4-12.4); NEUTROPHIL # (ANC) 3.6 K/uL (1.4-9.0); NEUTROPHIL % 56.7 %; NRBC % 0 /100WBC (0-0.00); PLATELET COUNT 205 K/uL (150-450); RBC 3.62 M/uL (3.50-5.50); RDW-CV 14.2 % (11.9-14.6); WBC 6.3 K/uL (4.0-11.0)
[2016-09-06 05:22] LABS: ALBUMIN 3.1 gm/dL (3.5-5.0); ALK PHOS 50 IU/L (33-138); ALT 35 IU/L (12-78); ANION GAP 13.3 (10.0-19.0); AST 81 IU/L (10-40); BLOOD UREA NITROGEN 9 mg/dL (6-24); CALCIUM 8.5 mg/dL (8.5-10.5); CHLORIDE 110 mMol/L (96-110); CO2 24 mMol/L (22-32); CREATININE 0.8 mg/dL (0.6-1.3); ESTIMATED GFR (MDRD EQUATION) > 60; POTASSIUM 3.3 mMol/L (3.7-5.1); SODIUM 144 mMol/L (135-145); TOTAL BILIRUBIN 1.3 mg/dL (0.0-1.5); TOTAL PROTEIN 5.8 g/dL (6.0-8.4)
[2016-09-06 18:44] LABS: BILIRUBIN URINE NEGATIVE (NEGATIVE); BLOOD URINE 50 /UL (NEGATIVE); COLOR URINE YELLOW (YELLOW); GLUCOSE URINE NEGATIVE (NEGATIVE); KETONE URINE 50 mg/dL (NEGATIVE); LEUKOCYTES URINE NEGATIVE /UL (NEGATIVE); NITRITE URINE NEGATIVE (NEGATIVE); PROTEIN URINE NEGATIVE (NEGATIVE); SPEC GRAVITY URINE 1.015 (1.003-1.035); TURBIDITY URINE CLEAR (CLEAR); UROBILINOGEN URINE NORMAL (NORMAL)
[2016-09-06 18:54] LABS: RBC URINE 0-2 #/HPF (NEGATIVE); WBC URINE 0-2 #/HPF (NEGATIVE)
[2016-09-06 18:55] LABS: BACTERIA URINE RARE (NEGATIVE); EPITHELIAL URINE RARE #/HPF (NEGATIVE); MUCUS URINE 2+ (NEGATIVE)
[2016-09-07 04:06] LABS: BASOPHIL % 0.5 %; EOSINOPHIL # 0.2 K/uL (0.0-0.5); EOSINOPHIL % 2.9 %; HEMATOCRIT 38.3 % (37.0-53.0); HEMOGLOBIN 12.6 g/dL (11.0-16.0); IMMATURE GRANULOCYTE % 0.5 %; LYMPHOCYTE # 1.2 K/uL (0.8-4.0); LYMPHOCYTE % 15.1 %; MCH 33.7 pg (27.0-34.0); MCHC 32.9 gm/dL (32.0-36.5); MCV 102.4 fl (83.0-98.0); MONOCYTE # 1.1 K/uL (0.0-1.0); MONOCYTE % 14.7 %; MPV 10.2 fl (9.4-12.4); NEUTROPHIL # (ANC) 5.1 K/uL (1.4-9.0); NEUTROPHIL % 66.3 %; NRBC % 0.3 /100WBC (0-0.00); PLATELET COUNT 200 K/uL (150-450); RBC 3.74 M/uL (3.50-5.50); RDW-CV 14.1 % (11.9-14.6); WBC 7.6 K/uL (4.0-11.0)
[2016-09-07 04:25] LABS: ANION GAP 16.5 (10.0-19.0); BLOOD UREA NITROGEN 9 mg/dL (6-24); CALCIUM 8.2 mg/dL (8.5-10.5); CHLORIDE 112 mMol/L (96-110); CO2 20 mMol/L (22-32); CREATININE 0.8 mg/dL (0.6-1.3); ESTIMATED GFR (MDRD EQUATION) > 60; PHOSPHORUS 3.1 mg/dL (2.5-4.9); POTASSIUM 3.5 mMol/L (3.7-5.1); SODIUM 145 mMol/L (135-145)
[2016-09-08 05:43] LABS: ANION GAP 13.3 (10.0-19.0); BLOOD UREA NITROGEN 7 mg/dL (6-24); CALCIUM 8.3 mg/dL (8.5-10.5); CHLORIDE 110 mMol/L (96-110); CO2 23 mMol/L (22-32); CREATININE 0.8 mg/dL (0.6-1.3); ESTIMATED GFR (MDRD EQUATION) > 60; POTASSIUM 3.3 mMol/L (3.7-5.1); SODIUM 143 mMol/L (135-145)
[2016-09-08 05:52] LABS: BASOPHIL % 0.3 %; EOSINOPHIL # 0.1 K/uL (0.0-0.5); EOSINOPHIL % 0.6 %; HEMATOCRIT 36.9 % (37.0-53.0); HEMOGLOBIN 12.4 g/dL (11.0-16.0); IMMATURE GRANULOCYTE # 0.1 K/uL (0.0-0.3); IMMATURE GRANULOCYTE % 0.7 %; LYMPHOCYTE # 0.7 K/uL (0.8-4.0); MCHC 33.6 gm/dL (32.0-36.5); MCV 101.1 fl (83.0-98.0); MONOCYTE # 1.5 K/uL (0.0-1.0); MONOCYTE % 14.7 %; MPV 10.4 fl (9.4-12.4); NEUTROPHIL # (ANC) 7.6 K/uL (1.4-9.0); NEUTROPHIL % 76.7 %; NRBC % 0 /100WBC (0-0.00); PLATELET COUNT 204 K/uL (150-450); RBC 3.65 M/uL (3.50-5.50); RDW-CV 14.2 % (11.9-14.6); WBC 9.9 K/uL (4.0-11.0)
[2016-09-09 07:38] LABS: BASOPHIL % 0.3 %; EOSINOPHIL # 0.2 K/uL (0.0-0.5); EOSINOPHIL % 1.8 %; HEMATOCRIT 34.8 % (37.0-53.0); HEMOGLOBIN 11.8 g/dL (11.0-16.0); IMMATURE GRANULOCYTE # 0.1 K/uL (0.0-0.3); IMMATURE GRANULOCYTE % 0.6 %; LYMPHOCYTE # 0.9 K/uL (0.8-4.0); LYMPHOCYTE % 9.6 %; MCH 34.3 pg (27.0-34.0); MCHC 33.9 gm/dL (32.0-36.5); MCV 101.2 fl (83.0-98.0); MONOCYTE # 1.1 K/uL (0.0-1.0); MONOCYTE % 12.2 %; MPV 10.3 fl (9.4-12.4); NEUTROPHIL # (ANC) 6.8 K/uL (1.4-9.0); NEUTROPHIL % 75.5 %; NRBC % 0 /100WBC (0-0.00); PLATELET COUNT 218 K/uL (150-450); RBC 3.44 M/uL (3.50-5.50); RDW-CV 14.2 % (11.9-14.6)
[2016-09-09 07:55] LABS: ALBUMIN 2.4 gm/dL (3.5-5.0); ANION GAP 12.3 (10.0-19.0); BLOOD UREA NITROGEN 10 mg/dL (6-24); CALCIUM 8.3 mg/dL (8.5-10.5); CHLORIDE 111 mMol/L (96-110); CO2 23 mMol/L (22-32); CREATININE 0.7 mg/dL (0.6-1.3); ESTIMATED GFR (MDRD EQUATION) > 60; POTASSIUM 3.3 mMol/L (3.7-5.1); SODIUM 143 mMol/L (135-145)
[2016-09-09 07:56] LABS: PHOSPHORUS 1.7 mg/dL (2.5-4.9)
[2016-09-10 04:21] LABS: ALBUMIN 2.2 gm/dL (3.5-5.0); ANION GAP 12.5 (10.0-19.0); BLOOD UREA NITROGEN 11 mg/dL (6-24); CALCIUM 7.9 mg/dL (8.5-10.5); CHLORIDE 112 mMol/L (96-110); CO2 21 mMol/L (22-32); CREATININE 0.6 mg/dL (0.6-1.3); ESTIMATED GFR (MDRD EQUATION) > 60; MAGNESIUM 2.5 mg/dL (1.8-2.6); PHOSPHORUS 2.1 mg/dL (2.5-4.9); POTASSIUM 3.5 mMol/L (3.7-5.1); SODIUM 142 mMol/L (135-145)
[2016-09-11 05:36] LABS: ANION GAP 15.5 (10.0-19.0); BLOOD UREA NITROGEN 10 mg/dL (6-24); CALCIUM 8.1 mg/dL (8.5-10.5); CHLORIDE 112 mMol/L (96-110); CO2 20 mMol/L (22-32); CREATININE 0.6 mg/dL (0.6-1.3); ESTIMATED GFR (MDRD EQUATION) > 60; POTASSIUM 3.5 mMol/L (3.7-5.1); SODIUM 144 mMol/L (135-145)
[2016-09-14 05:58] LABS: ALBUMIN 2.3 gm/dL (3.5-5.0); BLOOD UREA NITROGEN 11 mg/dL (6-24); CALCIUM 8.1 mg/dL (8.5-10.5); CHLORIDE 108 mMol/L (96-110); CO2 25 mMol/L (22-32); CREATININE 0.7 mg/dL (0.6-1.3); ESTIMATED GFR (MDRD EQUATION) > 60; MAGNESIUM 1.9 mg/dL (1.8-2.6); PHOSPHORUS 2.5 mg/dL (2.5-4.9); SODIUM 143 mMol/L (135-145)
[2016-09-14 06:06] LABS: BASOPHIL % 0.6 %; EOSINOPHIL # 0.2 K/uL (0.0-0.5); EOSINOPHIL % 2.6 %; HEMATOCRIT 34.5 % (37.0-53.0); HEMOGLOBIN 11.7 g/dL (11.0-16.0); IMMATURE GRANULOCYTE # 0.3 K/uL (0.0-0.3); IMMATURE GRANULOCYTE % 3.8 %; LYMPHOCYTE # 1.1 K/uL (0.8-4.0); LYMPHOCYTE % 15.3 %; MCH 33.5 pg (27.0-34.0); MCHC 33.9 gm/dL (32.0-36.5); MCV 98.9 fl (83.0-98.0); MONOCYTE % 13.9 %; MPV 10.5 fl (9.4-12.4); NEUTROPHIL # (ANC) 4.5 K/uL (1.4-9.0); NEUTROPHIL % 63.8 %; NRBC % 0 /100WBC (0-0.00); PLATELET COUNT 322 K/uL (150-450); RBC 3.49 M/uL (3.50-5.50); RDW-CV 13.9 % (11.9-14.6)
[2016-09-15 05:33] LABS: ANION GAP 10.4 (10.0-19.0); BLOOD UREA NITROGEN 10 mg/dL (6-24); CALCIUM 8.2 mg/dL (8.5-10.5); CHLORIDE 110 mMol/L (96-110); CO2 26 mMol/L (22-32); CREATININE 0.8 mg/dL (0.6-1.3); ESTIMATED GFR (MDRD EQUATION) > 60; POTASSIUM 3.4 mMol/L (3.7-5.1); SODIUM 143 mMol/L (135-145)
[2016-09-15 13:42] LABS: BASOPHIL # 0.1 K/uL (0.0-0.2); BASOPHIL % 0.8 %; EOSINOPHIL # 0.2 K/uL (0.0-0.5); EOSINOPHIL % 1.7 %; HEMATOCRIT 34.2 % (37.0-53.0); HEMOGLOBIN 11.6 g/dL (11.0-16.0); IMMATURE GRANULOCYTE # 0.4 K/uL (0.0-0.3); IMMATURE GRANULOCYTE % 4.1 %; LYMPHOCYTE # 1.1 K/uL (0.8-4.0); LYMPHOCYTE % 12.6 %; MCH 33.8 pg (27.0-34.0); MCHC 33.9 gm/dL (32.0-36.5); MCV 99.7 fl (83.0-98.0); MONOCYTE # 1.6 K/uL (0.0-1.0); MONOCYTE % 17.9 %; MPV 10.3 fl (9.4-12.4); NEUTROPHIL # (ANC) 5.6 K/uL (1.4-9.0); NEUTROPHIL % 62.9 %; NRBC % 0 /100WBC (0-0.00); PLATELET COUNT 349 K/uL (150-450); RBC 3.43 M/uL (3.50-5.50); RDW-CV 14.4 % (11.9-14.6); WBC 8.9 K/uL (4.0-11.0)
[2016-09-16 03:59] LABS: ALBUMIN 2.1 gm/dL (3.5-5.0); ANION GAP 8.9 (10.0-19.0); BLOOD UREA NITROGEN 11 mg/dL (6-24); CALCIUM 7.8 mg/dL (8.5-10.5); CHLORIDE 110 mMol/L (96-110); CO2 26 mMol/L (22-32); CREATININE 0.8 mg/dL (0.6-1.3); ESTIMATED GFR (MDRD EQUATION) > 60; PHOSPHORUS 2.2 mg/dL (2.5-4.9); POTASSIUM 3.9 mMol/L (3.7-5.1); SODIUM 141 mMol/L (135-145)
[2016-09-16 04:03] LABS: HEMATOCRIT 33.9 % (37.0-53.0); HEMOGLOBIN 11.3 g/dL (11.0-16.0); MCH 33.6 pg (27.0-34.0); MCHC 33.3 gm/dL (32.0-36.5); MCV 100.9 fl (83.0-98.0); PLATELET COUNT 307 K/uL (150-450); RBC 3.36 M/uL (3.50-5.50); RDW-CV 14.4 % (11.9-14.6); WBC 7.4 K/uL (4.0-11.0)
[2016-09-16 04:06] LABS: INR - (THERAPEUTIC) 1.15 (0.92-1.07); PROTIME 12.1 SECONDS (9.8-11.4)
[2016-09-16 04:34] LABS: BANDED NEUTROPHIL # 1.3 K/uL (0.0-0.1); BANDED NEUTROPHILS % 17 %; LYMPHOCYTE # 0.2 K/uL (0.8-4.0); LYMPHOCYTE % 3 %; SEGMENTED NEUTROPHIL # 5.8 K/uL (1.4-9.0); SEGMENTED NEUTROPHIL % 78 %
[2016-09-17 04:52] LABS: INR - (THERAPEUTIC) 1.16 (0.92-1.07); PROTIME 12.2 SECONDS (9.8-11.4)
[2016-09-18 03:39] LABS: ALBUMIN 2.4 gm/dL (3.5-5.0); BASOPHIL % 0.2 %; BLOOD UREA NITROGEN 21 mg/dL (6-24); CALCIUM 8.1 mg/dL (8.5-10.5); CHLORIDE 110 mMol/L (96-110); CO2 28 mMol/L (22-32); CREATININE 0.8 mg/dL (0.6-1.3); ESTIMATED GFR (MDRD EQUATION) > 60; HEMATOCRIT 34.2 % (37.0-53.0); HEMOGLOBIN 11.3 g/dL (11.0-16.0); IMMATURE GRANULOCYTE # 0.5 K/uL (0.0-0.3); IMMATURE GRANULOCYTE % 3.5 %; LYMPHOCYTE # 0.9 K/uL (0.8-4.0); LYMPHOCYTE % 6.7 %; MAGNESIUM 2.5 mg/dL (1.8-2.6); MCH 33.4 pg (27.0-34.0); MCV 101.2 fl (83.0-98.0); MONOCYTE # 0.8 K/uL (0.0-1.0); MONOCYTE % 5.9 %; MPV 10.9 fl (9.4-12.4); NEUTROPHIL # (ANC) 10.9 K/uL (1.4-9.0); NEUTROPHIL % 83.7 %; NRBC % 0.2 /100WBC (0-0.00); PHOSPHORUS 2.3 mg/dL (2.5-4.9); RBC 3.38 M/uL (3.50-5.50); RDW-CV 14.4 % (11.9-14.6); SODIUM 145 mMol/L (135-145)
[2016-09-18 03:42] LABS: PLATELET COUNT 414 K/uL (150-450)
[2016-09-18 03:49] LABS: INR - (THERAPEUTIC) 1.64 (0.92-1.07); PROTIME 17.3 SECONDS (9.8-11.4)
[2016-09-19 05:06] LABS: HEMATOCRIT 35.2 % (37.0-53.0); HEMOGLOBIN 11.6 g/dL (11.0-16.0); MCH 33.4 pg (27.0-34.0); MCV 101.4 fl (83.0-98.0); MPV 10.7 fl (9.4-12.4); PLATELET COUNT 392 K/uL (150-450); RBC 3.47 M/uL (3.50-5.50); RDW-CV 14.3 % (11.9-14.6); WBC 9.4 K/uL (4.0-11.0)
[2016-09-19 05:16] LABS: INR - (THERAPEUTIC) 2.6 (0.92-1.07); PROTIME 27.6 SECONDS (9.8-11.4)
[2016-09-19 06:26] LABS: BANDED NEUTROPHIL # 0.8 K/uL (0.0-0.1); BANDED NEUTROPHILS % 8 %; LYMPHOCYTE # 2.3 K/uL (0.8-4.0); LYMPHOCYTE % 24 %; MONOCYTE # 0.8 K/uL (0.0-1.0); SEGMENTED NEUTROPHIL # 5.3 K/uL (1.4-9.0); SEGMENTED NEUTROPHIL % 56 %
[2016-09-20 03:34] LABS: INR - (THERAPEUTIC) 3.04 (0.92-1.07); PROTIME 32.3 SECONDS (9.8-11.4)
[2016-09-20 03:39] LABS: BLOOD UREA NITROGEN 22 mg/dL (6-24); CALCIUM 8.3 mg/dL (8.5-10.5); CHLORIDE 107 mMol/L (96-110); CO2 27 mMol/L (22-32); CREATININE 1.1 mg/dL (0.6-1.3); ESTIMATED GFR (MDRD EQUATION) > 60; MAGNESIUM 2.5 mg/dL (1.8-2.6); SODIUM 143 mMol/L (135-145)
== END 2016-09-20 10:55 | DRG 308 ==
LOC: GPCU 18:03
PROVIDERS: Internal Medicine; Internal Medicine Interventional Cardiology; Nurse Practitioner Acute Care; Nurse Practitioner Family; ADMIT Internal Medicine
PROC: 02HV33Z Insertion of Infusion Device into Superior Vena Cava, Percutaneous Approach (ICD-10-PCS; 2016-09-07)
PROC: 0DH63UZ Insertion of Feeding Device into Stomach, Percutaneous Approach (ICD-10-PCS; principal; 2016-09-12)
DX: I48.0 Paroxysmal atrial fibrillation (principal); G93.40 Encephalopathy, unspecified; R13.10 Dysphagia, unspecified; I50.22 Chronic systolic (congestive) heart failure; B95.62 Methicillin resistant Staphylococcus aureus infection as the cause of diseases classified elsewhere; I11.0 Hypertensive heart disease with heart failure; K94.22 Gastrostomy infection; M10.9 Gout, unspecified; G47.33 Obstructive sleep apnea (adult) (pediatric); I25.10 Atherosclerotic heart disease of native coronary artery without angina pectoris; Z95.5 Presence of coronary angioplasty implant and graft; N40.0 Benign prostatic hyperplasia without lower urinary tract symptoms; K21.9 Gastro-esophageal reflux disease without esophagitis; R63.4 Abnormal weight loss; Z79.01 Long term (current) use of anticoagulants; Z86.73 Personal history of transient ischemic attack (TIA), and cerebral infarction without residual deficits; R25.9 Unspecified abnormal involuntary movements; Z87.891 Personal history of nicotine dependence; I25.2 Old myocardial infarction; E87.6 Hypokalemia; R09.02 Hypoxemia; M19.90 Unspecified osteoarthritis, unspecified site; M13.871 Other specified arthritis, right ankle and foot; I69.320 Aphasia following cerebral infarction; I69.392 Facial weakness following cerebral infarction; I69.398 Other sequelae of cerebral infarction; I69.391 Dysphagia following cerebral infarction
CPT/HCPCS: A9270; C1751; C9113; J0282; J0360; J0690; J0696; J1160; J1200; J1630; J1650; J1885; J1953; J2060; J2270; J2920; J2997; J3475; J3480; J7030; J7040; J7050; J7060

== ENCOUNTER → 2016-09-20 | Outpatient (CLI) | payer MEDICARE, BC | END | disposition disaster alternative care site (69) | LOC: GAMB 10:59 | DX: I63.9 Cerebral infarction, unspecified (principal); Z79.899 Other long term (current) drug therapy | CPT/HCPCS: A0425; A0428 ==